=== PATIENT | female | born 1995 | race Caucasian/White ===

== ENCOUNTER 2020-07-02 11:09 | Inpatient (IN) ==
[2020-07-02 12:55] LABS: ABS Eosinophils 0.1 10^3/ul (0-0.6); ABS Monocytes 0.6 10^3/ul (0-0.8); ABS Neutrophils 7.5 10^3/ul (1.5-7.7); Eosinophil % 0.9 %; Hematocrit 32 % (35-47); Hemoglobin 10.6 g/dL (12.0-16.0); Mean Corpuscular HGB Conc 34 g/dL (31-36); Mean Corpuscular Hemoglobin 25 pg (27-31); Mean Corpuscular Volume 75 fL (80-97); Mean Platelet Volume 8.1 fL (7.4-10.4); Platelet Count 274 10^3/uL (150-450); Red Blood Count 4.23 10^6 /uL (3.70-4.87); Red Cell Distribution Width 16 % (10-15); White Blood Count 10.2 10^3/uL (3.5-10.8)
[2020-07-02 13:18] LABS: Albumin 3.2 g/dL (3.2-5.2); BUN/Creatinine Ratio 10.3 (8-20); Calcium 9.2 mg/dL (8.6-10.3); EGFR African American 155.9 (>60); EGFR Non-African American 128.8 (>60); Globulin 3.3 g/dL (2-4); Potassium 3.5 mmol/L (3.5-5.0); Total Bilirubin 0.3 mg/dL (0.2-1.0); Total Protein 6.5 g/dL (6.4-8.9); Uric Acid 3.7 mg/dL (2.3-6.6)
[2020-07-02 13:33] LABS: Urine Benzodiazepine Screen None Detected (None Detect); Urine Cannabinoids Screen None Detected (None Detect); Urine Opiates Screen None Detected (None Detect)
[2020-07-02] MEDS ORDERED: Lactated Ringers 1000 ml BAG 1,000 ML IV ONE (18:28)
[2020-07-02] MEDS ORDERED: Buffered Lidocaine 1% SYRIN 1 ml INTRADERM ONE (18:28)
[2020-07-03] MEDS ORDERED: HYDROmorphone 0.5 MG/0.5 ML SYRINGE IV SLOW PU ONE (03:00)
[2020-07-03] MEDS: HYDROmorphone 0.5 MG/0.5 ML SYRINGE IV SLOW PU PRN ×2 (12:16→19:02)
[2020-07-03] MEDS ORDERED: Lactated Ringers 1000 ml BAG 1,000 ML IV ONE (18:57)
[2020-07-03] MEDS: Lactated Ringers 1000 ml BAG 1,000 ML IV SCH (19:03)
[2020-07-04] MEDS: Ondansetron 4 mg VIAL 2 MG/ML 2 ml VIAL IV PRN ×2 (00:43→17:19)
[2020-07-04] MEDS: HYDROmorphone 0.5 MG/0.5 ML SYRINGE IV SLOW PU PRN (01:19)
[2020-07-04] MEDS ORDERED: Oxytocin in LR 20 UNITS/1,000 ML BAG IVPB ONE (08:46)
[2020-07-04] MEDS ORDERED: Oxytocin in LR 20 UNITS/1,000 ML BAG IVPB SCH (09:00)
[2020-07-04] MEDS ORDERED: OBEPIDURAL 250 ML EPIDURAL ONE (09:47)
[2020-07-04] MEDS ORDERED: Bupivacaine 0.25% SDV PF 10 ML VIAL INJ ONE ×3 (10:35→22:13)
[2020-07-04] MEDS: Lactated Ringers 1000 ml BAG 1,000 ML IV SCH (11:00)
[2020-07-04] MEDS ORDERED: EPHEDrine (Pressors) 50 MG/ML VIAL IV PUSH PRN ×2 (12:03)
[2020-07-04] MEDS ORDERED: Phenylephrine 40 mcg/mL 10mL (400mcg) SYRINGE IV PUSH PRN ×2 (12:03)
[2020-07-04] MEDS ORDERED: Lactated Ringers 1000 ml BAG 1,000 ML IV ONE (12:03)
[2020-07-04] MEDS ORDERED: Sodium Citrate/Citric Acid LIQ 15 ML UDC PO PRN (12:03)
[2020-07-04] MEDS ORDERED: OBEPIDURAL 250 ML EPIDURAL SCH (13:00)
[2020-07-04] MEDS ORDERED: Lactated Ringers 1000 ml BAG 1,000 ML IV SCH (13:00)
[2020-07-04] MEDS ORDERED: diPHENhydraMINE IV 50 MG/ML 1 ml VIAL (BENADRYL) IV ONE (16:34)
[2020-07-05] MEDS ORDERED: Witch Hazel PAD JAR TOPICAL PRN (00:56)
[2020-07-05] MEDS ORDERED: Dibucaine 1% OINT 28.35 GM TUBE PR PRN (00:56)
[2020-07-05] MEDS ORDERED: Oxytocin in LR 20 UNITS/1,000 ML BAG IVPB SCH (01:00)
[2020-07-05] MEDS ORDERED: Lactated Ringers 1000 ml BAG 1,000 ML IV SCH (01:00)
[2020-07-05] MEDS ORDERED: Lidocaine 1% VIAL 10 MG/ML VIAL ONE (04:20)
[2020-07-05] MEDS ORDERED: Measles, Mumps,Rubella VACC 0.5 ML/VIAL SUBCUT ONE (09:00)
[2020-07-06 07:34] VITALS: BP 131/73
[2020-07-06 07:48] LABS: ABS Eosinophils 0.1 10^3/ul (0-0.6); ABS Lymphocytes 2.7 10^3/ul (1.0-4.8); ABS Neutrophils 8.8 10^3/ul (1.5-7.7); Eosinophil % 0.9 %; Hematocrit 29 % (35-47); Hemoglobin 9.5 g/dL (12.0-16.0); Lymphocyte % 21.2 %; Mean Corpuscular HGB Conc 33 g/dL (31-36); Mean Corpuscular Hemoglobin 24 pg (27-31); Mean Corpuscular Volume 74 fL (80-97); Mean Platelet Volume 7.8 fL (7.4-10.4); Platelet Count 247 10^3/uL (150-450); Red Cell Distribution Width 16 % (10-15); White Blood Count 12.5 10^3/uL (3.5-10.8)
== END 2020-07-06 12:09 | disposition home or self-care (01) | DRG 807 ==
LOC: MCHOBOUT 11:09 → MCHOB 18:30
PROVIDERS: ADMIT Obstetrics & Gynecology; ATTEND Obstetrics & Gynecology

== ENCOUNTER 2022-02-23 05:52 | Inpatient (IN) ==
[2022-02-23] MEDS ORDERED: Sodium Citrate/Citric Acid LIQ 15 ML UDC PO ONE (06:00)
[2022-02-23] MEDS ORDERED: Lactated Ringers 1000 ml BAG 1,000 ML IV SCH (06:00)
[2022-02-23] MEDS ORDERED: Buffered Lidocaine 1% SYRIN 1 ml INTRADERM ONE (06:00)
[2022-02-23] MEDS ORDERED: Heparin 5000 UNITS/ML 1 mL VIAL ONE (06:19)
[2022-02-23] MEDS ORDERED: Scopolamine 1 mg/72hr PATCH ONE (06:19)
[2022-02-23] MEDS ORDERED: Sodium Citrate/Citric Acid LIQ 15 ML UDC ONE (06:19)
[2022-02-23] MEDS ORDERED: ceFAZolin 1 GM in Dextrose 1 GM/50 ML BAG ONE (06:20)
[2022-02-23] MEDS ORDERED: ceFAZolin 2 GM PREMIX 2 GM/50 ML BAG ONE (06:20)
[2022-02-23] MEDS ORDERED: Bupivacaine 0.25% w/EPI 10 ML SDV ONE (06:58)
[2022-02-23] MEDS ORDERED: Methylene Blue 0.5 % 50 MG/10 ML AMP IV ONE (06:58)
[2022-02-23] MEDS ORDERED: Sevoflurane BOTTLE ONE (07:00)
[2022-02-23] MEDS ORDERED: Propofol 10 MG/ML 20 ML BTL ONE (07:07)
[2022-02-23] MEDS ORDERED: Dexmedetomidine 200 mcg/2 ml 2 ml VIAL (200 mcg) ONE (07:08)
[2022-02-23] MEDS ORDERED: Ondansetron 4 mg VIAL 2 MG/ML 2 ml VIAL ONE (07:08)
[2022-02-23] MEDS ORDERED: Dexamethasone IV 4 MG/ML VIAL 1 ml VIAL ONE (07:08)
[2022-02-23] MEDS ORDERED: Lidocaine 2% PF 5 ML VIAL ONE (07:09)
[2022-02-23] MEDS ORDERED: Rocuronium 50 mg VIAL 10 mg/ml 5 ml VIAL (50 mg) ONE ×2 (07:09→08:12)
[2022-02-23] MEDS ORDERED: fentaNYL 100 mcg/2 ml 50 MCG/ML VIAL ONE (07:09)
[2022-02-23] MEDS ORDERED: Glycopyrrolate IV 0.2 MG/ML 1 ML VIAL ONE (07:12)
[2022-02-23] MEDS ORDERED: Naloxone 0.4 mg VIAL 0.4 mg/ml 1 ml VIAL IV PRN (07:32)
[2022-02-23] MEDS ORDERED: HYDROmorphone 1 MG/1 ML SYRINGE IV PRN (07:32)
[2022-02-23] MEDS ORDERED: Acetaminophen IV 1 GM/100ML 1,000 MG/100 ML BAG IV ONE (08:05)
[2022-02-23] MEDS ORDERED: HYDROmorphone 0.5 MG/0.5 ML SYRINGE ONE ×2 (09:22→10:46)
[2022-02-23] MEDS ORDERED: Metoprolol Tartrate 5 mg VIAL 5 ml VIAL (1 mg/ml) ONE (10:09)
[2022-02-23] MEDS ORDERED: HYDROcodone/ACET. 7.5/325 LIQ 15 ML UDC PO PRN (11:01)
[2022-02-23] MEDS ORDERED: HYDROmorphone 1 MG/1 ML SYRINGE ONE (11:36)
[2022-02-23] MEDS: Lactated Ringers 1000 ml BAG 1,000 ML IV SCH ×2 (12:24→20:04)
[2022-02-23] MEDS: Ondansetron 4 mg VIAL 2 MG/ML 2 ml VIAL IV PRN ×2 (13:15→19:58)
[2022-02-23] MEDS: HYDROmorphone 0.5 MG/0.5 ML SYRINGE IV SLOW PU PRN ×2 (15:58→20:20)
[2022-02-23] MEDS: Heparin 5000 UNITS/ML 1 mL VIAL SUBCUT SCH (21:16)
[2022-02-24] MEDS: Lactated Ringers 1000 ml BAG 1,000 ML IV SCH ×2 (03:35→10:43)
[2022-02-24] MEDS: Heparin 5000 UNITS/ML 1 mL VIAL SUBCUT SCH ×2 (06:03→15:18)
[2022-02-24 11:43] VITALS: BP 111/73
[2022-02-24] MEDS ORDERED: D5W 1/2 NS KCl 20 meq 1000 ml 1,000 ML IV SCH (12:00)
== END 2022-02-24 16:30 | disposition home or self-care (01) | DRG 621 ==
LOC: AA 05:52 → SSU 11:01
PROVIDERS: ADMIT Surgery; ATTEND Surgery